=== PATIENT | male | born 1985 | race Caucasian/White ===

== ENCOUNTER 2020-12-07 09:09 | Emergency (ER) | payer OTHER ==
[~2020-12-07] VITALS: Ht 177.8 cm; Wt 81.6 kg
[2020-12-07 09:21] VITALS: BP 118/62
--- NOTE | 2020-12-07 09:28 | NUR ---
ARRIVAL PATIENT ARRIVED TO ED4 AMBULATORY, C/O SINUS HEADACHE, NECK STIFFNESS, NAUSEA AND DIZZINESS FOR THE PAST 4 DAYS, WAS SEEN THREE DAYS AGO IN CLINIC IN [place] AND TESTED FOR FLU,STREP AND COVID, ALL TESTS WERE NEGATIVE, TODAY SYMPTOMS CONTINUE, DECIDED TO COME TO THE ED FOR FURTHER EVAL, VITAL SIGNS OBTAINED AND DOCTOR PETE TO THE ROOM TO SEE PATIENT.
--- NOTE | 2020-12-07 09:47 | ER.PDOC ---
General Chief Complaint: General Complaint Stated Complaint: COVID SYMPTOMS TRAVEL OUT OF US: No Time seen by MD: 09:38 Source: patient Exam Limitations: no limitations History of Present Illness Initial Comments Headache, generalized body aches, mild cough and not generally feeling well for 5 days. Patient was seen in the emergency room in [place] and he tested negative for Covid. Severity: moderate Associated Symptoms: headaches, weakness, other (fatigue) Allergies: Coded Allergies: No Known Allergies (Unverified , 12/07/20) Past Medical History Medical History: no pertinent history Surgical History: other Family History Significant Family History: no pertinent family hx Social History Smoking: non-smoker Alcohol Use: none Drug Use: none Review of Systems Constitutional: see HPI EENTM: no symptoms reported Respiratory: no symptoms reported Cardiovascular: no symptoms reported Gastrointestinal: no symptoms reported All Other Systems: Reviewed and Negative Physical Exam General Appearance: No Apparent Distress, WD/WN EENT: eyes nml inspection Neck: Non-Tender, Full Range of Motion, Supple, Normal Inspection Respiratory: chest non-tender, lungs clear, normal breath sounds, no respiratory distress CVS: reg rate & rhythm, no murmur, no gallop, pulses nml, nml capillary refill Gastrointestinal: Normal Bowel Sounds, No Organomegaly, No Pulsatile Mass, Non Tender, Absent bowel sounds Back: Normal Inspection Extremities: Normal Range of Motion, Non-Tender Neurologic/Psychiatric: creasing and cutting press feeder II-XII NML as Tested Skin: Normal Color Results/Orders Results/Orders Orders - FORREST FREEMAN MD Cbc With Auto Diff (12/07/20 09:33) Comprehensive Metabolic Panel (12/07/20 09:33) Covid19 Antigen Abbey Johana (12/07/20 09:33) Ct Head Wo Contrast (12/07/20 09:33) Vital Signs Date Time Temp Pulse Resp B/P (MAP) Pulse Ox O2 Delivery O2 Flow Rate FiO2 12/07/20 10:19 97.4 1 18 116/62 (80) 95 Room Air 12/07/20 09:21 97.4 79 18 95 12/07/20 09:21 97.4 79 18 12/07/20 09:21 97.4 79 18 118/62 (80) 95 Room Air Laboratory Tests Test 12/07/20 09:44 White Blood Count 5.8 10^3/uL (4.5-11.0) Red Blood Count 4.29 10^6/uL (4.50-5.90) L Hemoglobin 13.7 g/dL (13.9-16.3) L Hematocrit 41.8 % (37.0-53.0) Mean Corpuscular Volume 97.4 fL (78-100) Mean Corpuscular Hemoglobin 31.9 pg (26-34) Mean Corpuscular Hemoglobin Concent 32.8 g/dL (33-36.5) L Red Cell Distribution Width 12.2 % (11.5-14.5) Platelet Count 199 10^3/uL (150-400) Mean Platelet Volume 9.9 fL (7.8-11.0) Neutrophils (%) (Auto) 67.5 % (41.0-85.0) Lymphocytes (%) (Auto) 20.0 % (24.0-44.0) L Monocytes (%) (Auto) 12.3 % (5.0-12.0) H Neutrophils # (Auto) 3.9 10^3/uL (1.8-7.7) Lymphocytes # (Auto) 1.15 10^3/uL1 (1.0-4.8) Monocytes # (Auto) 0.7 10^3/uL (0.3-0.8) Absolute Immature Granulocyte (auto 0 10^3 u/L (0-2) Absolute Eosinophils (auto) 0.0 10^3/uL (0.0-0.2) Immature Granulocytes % 0.00 % (0.00-0.50) Eosinophils % 0.2 % (0.0-5.0) Basophils % 0.0 % (0.0-0.2) Basophils # 0.0 10^3/uL (0.0-0.1) Sodium Level 139 mmol/L (132-145) Potassium Level 3.8 mmol/L (3.6-5.2) Chloride Level 102.0 mmol/L (96-109) Carbon Dioxide Level 25.8 mmol/L (20.0-32) Anion Gap 15.0 Blood Urea Nitrogen 14 mg/dL (7-18) Creatinine 1.20 mg/dL (0.59-1.40) Estimated GFR () 84.9 (>/=60) Est GFR (CKD-EPI)(Non-Afr Filipino) 70.2 (>/=60) BUN/Creatinine Ratio 11.0 Glucose Level 93 mg/dL (70-110) Calcium Level 8.5 mg/dL (8.4-10.5) Total Bilirubin 0.2 mg/dL (0.2-1.0) Aspartate Amino Transferase (AST) 18 U/L (0-35) Alanine Aminotransferase (ALT) 24 U/L (12-78) Alkaline Phosphatase 54 U/L (50-136) Total Protein 7.4 g/dL (6.4-8.2) Albumin 4.0 g/dL (3.4-5.0) Globulin 3.4 Albumin/Globulin Ratio 1.176 SARS-CoV-2 Antigen (Rapid) POSITIVE (NEGATIVE) *A EKG/XRAY/CT/US CT Comments: Normal CT head ER DEPART Departure Time of Disposition: 10:30 Disposition: 01 HOME / SELF CARE / HOMELESS Impression: Primary Impression: COVID-19 virus infection Condition: Stable Referrals: PCP,UNKNOWN (PCP) PRIMARY CARE PROVIDER Additional Instructions: Vitamin C, D and zinc [id number] Tylenol Self quarantine at home for 10 days Follow-up with your PCP in 3 to 5 days Return to ED if worsening or concerns Duration or Time Spent with Pa: 30 min FORREST FREEMAN MD Dec 07, 2020 09:47
[2020-12-07 09:55] LABS: EOSINOPHIL % 0.2 % (0.0-5.0); LYMPHOCYTES # 1.15 10^3/uL1 (1.0-4.8); MEAN CORP HGB 31.9 pg (26-34); MONOCYTES # 0.7 10^3/uL (0.3-0.8); MONOCYTES % 12.3 % (5.0-12.0); NEUTROPHIL # 3.9 10^3/uL (1.8-7.7); NEUTROPHILS % 67.5 % (41.0-85.0); RED CELL DISTRIBUTION WIDTH 12.2 % (11.5-14.5)
[2020-12-07 10:06] LABS: CALCIUM 8.5 mg/dL (8.4-10.5); CARBON DIOXIDE 25.8 mmol/L (20.0-32)
--- NOTE | 2020-12-07 10:12 | DIREP ---
PROCEDURE:CT HEAD OR BRAIN W/O CONTRAST COMPARISON:None. INDICATIONS:Headache TECHNIQUE:CT images were created without intravenous contrast. FINDINGS: VENTRICLES:The ventricles are normal in size and configuration. CEREBRUM:Normal cerebral morphology with appropriate cain white matter differentiation. CEREBELLUM:Negative. BRAINSTEM:Negative. BASAL CISTERNS:Negative. HEMORRHAGE:No MASS LESION:No ACUTE INFARCT:No SKULL:Normal. SINUSES:Normal. OTHER:None CONCLUSION:Normal head CT Dictated by: Estuardo Aldana MD on 12/07/2020 at 10:09 AM
[2020-12-07 10:19] VITALS: BP 116/62
== END 2020-12-07 10:34 | disposition home or self-care (01) ==
LOC: ER 09:09
DX: U07.1 COVID-19 (principal)
CPT/HCPCS: 70450; 80053; 85025; 87426; 99284